=== PATIENT | male | born 2000 | race Caucasian/White ===

== ENCOUNTER 2018-11-23 00:38 | Emergency (ER) | payer MEDICAID ==
[~2018-11-23] VITALS: Ht 167.6 cm; Wt 70.3 kg
[2018-11-23 00:47] VITALS: BP_SYST 139
--- NOTE | 2018-11-23 00:53 | NUR ---
Patient triaged and placed in waiting room. VSS and patient appears in no acute distress at this time. Accompanied by visitor, awaiting available bed, and MD notified of need for MSE.
--- NOTE | 2018-11-23 02:19 | NUR ---
Pt c/o right groin pain s/p playing soccer 4 days ago. Pain is exacerbated with exension of right hip and with ambulation. Denies trauma or injury, denies testicular swelling or pain. No dysuria or hematuria reported.
--- NOTE | 2018-11-23 02:19 | NUR ---
Patient to ER bed 6 to gown for evaluation. Side rails up.
--- NOTE | 2018-11-23 02:22 | NUR ---
ER at bedside examining patient.
[2018-11-23] MEDS ORDERED: KETOROLAC TROMETHAMINE 60 MG/2 ML VIAL IM ONE (02:45)
[2018-11-23 03:22] VITALS: BP_SYST 128
--- NOTE | 2018-11-23 03:22 | NUR ---
Patient given written and verbal discharge instructions and verbalizes understanding. ER MD discussed with patient the results and treatment provided. Patient in stable condition. ID arm band removed. Rx of Flexeril and Naprosyn given. Patient educated on pain management and to follow up with PMD. Pain Scale 3/10. Opportunity for questions provided and answered. Medication side effect fact sheet provided.
== END 2018-11-23 00:47 | disposition home or self-care (01) ==
LOC: SED 00:38
DX: S39.011A Strain of muscle, fascia and tendon of abdomen, initial encounter (principal); Z88.0 Allergy status to penicillin; X58.XXXA Exposure to other specified factors, initial encounter; Y93.89 Activity, other specified; Y92.89 Other specified places as the place of occurrence of the external cause; Y99.8 Other external cause status
CPT/HCPCS: 96372; 99283; J1885